=== PATIENT | female | born 2000 ===

== ENCOUNTER → 2022-06-21 09:26 | Outpatient (CLI) | payer BC, SELFPAY ==
--- NOTE | ~2022-06-21 | MR_ITS ---
MRI of the left knee Clinical history: Pain Technique: Coronal proton density and proton density-weighted images, sagittal proton-density and T2 fat-sat images, and axial proton-density fat-saturated images were acquired. Findings: Anterior and posterior cruciate ligaments are intact. Medial collateral ligament and the la teral collateral ligament complex are intact. Popliteus tendon is intact. Medial and lateral menisci are intact, without evidence of tear. Articular cartilage is well preserved throughout the knee. Bone marrow signals are unremarkable. Extensor mechanism is intact. No significant joint effusion or Finch's cyst. Impression: Unremarkable exam. Reviewed, dictated and finalized at location . [employer] Impression: Unremarkable exam.
== END ==
PROVIDERS: PCP Family Medicine; Visit Provider Family Medicine
DX: M25.562 Pain in left knee (principal)
CPT/HCPCS: 73721